=== PATIENT | female | born 1990 | race American Indian/Alaskan Native ===

== ENCOUNTER 2016-09-24 02:52 | Emergency (ER) | payer SELFPAY ==
[2016-09-24] MEDS ORDERED: PROVENTIL IH ONE (03:05)
[2016-09-24] MEDS ORDERED: ATROVENT IH ONE (03:05)
--- NOTE | 2016-09-24 08:24 | XRay Report ---
ROUTINE CHEST, TWO VIEWS: HISTORY: Cough. The trachea, heart, mediastinal contour, lung wills and bony thorax are unremarkable. IMPRESSION: Normal chest x-ray.
--- NOTE | 2016-09-24 08:27 | Emergency Department Report ---
ED Asthma HPI - General Chief Complaint: Adult Asthma Stated Complaint: ASTHMA ATTACK Time Seen by Provider: 09/24/16 08:13 Source: patient Mode of arrival: Ambulatory Limitations: No Limitations - History of Present Illness Initial Comments: Patient presents with asthma. She states that she does take DuoNeb and Proventil at home and that she uses this daily. She states she used the DuoNeb this morning which did not help with her shortness of breath and wheezing. She does state when she arrived to the ER she received a respiratory treatment which did help with her wheezing and shortness of breath. She does have a history of asthma, she has never been hospitalized or intubated for it. She is noted to have elevated heart rate but this could probably be due to the inhaler. She denies fever, chills, nausea, vomiting, cold-like symptoms. MD Complaint: shortness of breath, wheezing -: Gradual Asthma History: history of frequent attac, history of prior ED visit Severity: moderate Context: ran out of meds Associated Symptoms: dry cough Treatments Prior to Arrival: inhaled bronchodilator - Related Data Current Asthma Therapy: inhaled bronchodilator Previous Rx's Medication Instructions Recorded Last Taken Type Ipratropium/Albuterol Sulfate 1 ampul IH Q8HR #1 box 09/24/16 Unknown Rx [Duoneb 0.5 mg-3 mg/3 ml Soln] Allergies Allergy/AdvReac Type Severity Reaction Status Date / Time amoxicillin trihydrate Allergy Rash Verified 09/24/16 02:57 [From Augmentin] potassium clavulanate Allergy Rash Verified 09/24/16 02:57 [From Augmentin] ED Review of Systems ROS: Stated complaint: ASTHMA ATTACK Other details as noted in HPI Constitutional: denies: chills, fever Eyes: denies: eye pain, eye discharge, vision change ENT: denies: ear pain, throat pain Respiratory: cough, shortness of breath, wheezing Cardiovascular: denies: chest pain, palpitations Gastrointestinal: denies: abdominal pain, nausea, diarrhea Musculoskeletal: denies: back pain, joint swelling, arthralgia Skin: denies: rash, lesions Neurological: denies: headache, weakness, paresthesias ED Past Medical Hx - Past Medical History Previous Medical History?: Yes Hx Asthma: Yes - Surgical History Past Surgical History?: No - Social History Smoking Status: Never Smoker Substance Use Type: None - Medications Home Medications: Home Medications Medication Instructions Recorded Confirmed Last Taken Type Ipratropium/Albuterol Sulfate 1 ampul IH Q8HR #1 box 09/24/16 Unknown Rx [Duoneb 0.5 mg-3 mg/3 ml Soln] ED Physical Exam - General Limitations: No Limitations General appearance: alert, in no apparent distress - Head Head exam: Present: atraumatic, normocephalic - Eye Eye exam: Present: normal appearance - ENT ENT exam: Present: mucous membranes moist, TM's normal bilaterally - Expanded ENT Exam Expanded Ear exam: Present: normal external inspection Mouth exam: Present: normal external inspection Throat exam: Positive: normal inspection - Neck Neck exam: Present: normal inspection, full ROM. Absent: lymphadenopathy - Respiratory Respiratory exam: Present: normal lung sounds bilaterally, wheezes (right upper lobe anterior). Absent: respiratory distress, rales, rhonchi, stridor - Cardiovascular Cardiovascular Exam: Present: regular rate, normal rhythm. Absent: systolic murmur, diastolic murmur, rubs, gallop - GI/Abdominal GI/Abdominal exam: Present: soft, normal bowel sounds - Neurological Exam Neurological exam: Present: alert, oriented X3 - Psychiatric Psychiatric exam: Present: normal affect, normal mood - Skin Skin exam: Present: warm, dry, intact, normal color. Absent: rash ED Course Vital Signs 09/24/16 09/24/16 09/24/16 02:57 03:06 03:51 Temperature 98.2 F Pulse Rate 111 H Pulse Rate [ 117 H 107 H Anterior Bilateral Throughout] Respiratory 26 H Rate Respiratory 24 21 Rate [Anterior Bilateral Throughout] Blood Pressure 146/85 [Right] O2 Sat by Pulse 97 Oximetry ED Medical Decision Making - Medical Decision Making Patient presents with shortness of breath and wheezing due to her asthma. Her physical exam is within normal limits, she is noted to have wheezing in the right upper lobe anteriorly, she is not working to breathe and states that she feels better. She is out of her DuoNeb at home, I will give her a refill on this. I will advise her to follow-up with her primary care physician for further evaluation of her asthma. - Differential Diagnosis asthma, URI Critical Care Time: No Critical care attestation.: If time is entered above; I have spent that time in minutes in the direct care of this critically ill patient, excluding procedure time. ED Disposition Clinical Impression: Asthma Disposition: DISCHARGED TO HOME OR SELFCARE Is pt being admited?: No Does the pt Need Aspirin: No Condition: Stable Instructions: Asthma (ED), Reactive Airways Disease (ED) Additional Instructions: Please follow-up with your primary care physician for evaluation of her asthma and a asthma maintenance plan Prescriptions: Ipratropium/Albuterol Sulfate [Duoneb 0.5 mg-3 mg/3 ml Soln] 1 ampul IH Q8HR #1 box Referrals: PRIMARY CARE, [Primary Care Provider] - 3-5 Days Time of Disposition: 08:30
[2016-09-24 08:40] VITALS: BP 101/71
== END 2016-09-24 08:39 | disposition home or self-care (01) ==
LOC: ED 02:52
DX: J45.909 Unspecified asthma, uncomplicated (principal); Z88.8 Allergy status to other drugs, medicaments and biological substances
CPT/HCPCS: 71020; 94640